=== PATIENT | female | born 1980 | race Caucasian/White ===

== ENCOUNTER 2021-10-10 12:27 | Inpatient (IN) | payer MEDICAID ==
[~2021-10-10] VITALS: Ht 165.1 cm; Wt 85.7 kg
[2021-10-10] MEDS ORDERED: ALBU6.7H9 IH (12:32)
[2021-10-10] MEDS ORDERED: METHYLPREDNISOLONE SOD SUCC 125 MG/2 ML VIAL IV STA (12:45)
[2021-10-10] MEDS ORDERED: IPRATROPIUM BROMIDE (0.02%) 0.5MG/2.5ML NEB HHN STA (12:45)
[2021-10-10] MEDS ORDERED: ALBUTEROL (0.083%) 2.5MG/3ML NEB HHN STA (12:45)
[2021-10-10] MEDS ORDERED: ASPIRIN 81MG TABLET PO ONE (12:45)
[2021-10-10] MEDS ORDERED: MAGNESIUM 2 G PREMIX 50 ML IV ONE (13:00)
[2021-10-10 13:11] LABS: BASOPHILS % 0.5 % (0.0-2.0); EOSINOPHILS % 7.7 % (0.0-5.0); HEMATOCRIT. 36.2 % (36.0-48.0); HEMOGLOBIN. 11.7 g/dL (12.0-16.0); LYMPHOCYTES % 18.5 % (20.0-50.0); MEAN CORPUSCULAR HEMOGLOBIN 24.7 pg (28.0-32.0); MEAN CORPUSCULAR VOLUME 76.7 fL (81.0-99.0); MEAN PLATELET VOLUME 8.7 fl (7.4-10.4); MONOCYTES % 4.9 % (2.0-8.0); NEUTROPHILS % 68.4 % (40.0-76.0); PLATELET 316 x1000/uL (130-400); RED BLOOD CELL COUNT 4.72 mill/uL (4.2-5.4); RED CELL DISTRIBUTION WIDTH 16.4 % (11.6-14.6)
[2021-10-10 13:29] LABS: CHLORIDE 106 mEq/L (98-107)
[2021-10-10 13:34] LABS: HCG SCREEN NEGATIVE
[2021-10-10] MEDS ORDERED: ACETAMINOPHEN 325MG TABLET PO PRN (19:30)
[2021-10-10] MEDS ORDERED: ONDANSETRON HCL 4MG/2ML INJ IV PRN (19:30)
[2021-10-10] MEDS ORDERED: CLONIDINE 0.1MG TABLET PO PRN (19:30)
[2021-10-10] MEDS ORDERED: DIPHENHYDRAMINE 50MG/ML VIAL IV PRN (19:30)
[2021-10-10] MEDS: ENOXAPARIN 40MG/0.4ML SYR SUBCUT SCH (21:00)
[2021-10-11] MEDS: IPRATROPIUM/ALBUTEROL 0.5-3(2.5)MG/3ML NEB HHN PRN ×2 (02:32→08:54)
[2021-10-11 04:05] LABS: BASOPHILS % 0.2 % (0.0-2.0); EOSINOPHILS % 0.1 % (0.0-5.0); HEMOGLOBIN. 11.6 g/dL (12.0-16.0); LYMPHOCYTES % 7.8 % (20.0-50.0); MEAN CORPUSCULAR HEMOGLOBIN 24.8 pg (28.0-32.0); MEAN CORPUSCULAR VOLUME 76.9 fL (81.0-99.0); MONOCYTES % 2.5 % (2.0-8.0); NEUTROPHILS % 89.4 % (40.0-76.0); PLATELET 327 x1000/uL (130-400); RED BLOOD CELL COUNT 4.68 mill/uL (4.2-5.4); RED CELL DISTRIBUTION WIDTH 16.5 % (11.6-14.6)
[2021-10-11 04:09] LABS: CHLORIDE 107 mEq/L (98-107)
[2021-10-11] MEDS ORDERED: IPRATROPIUM/ALBUTEROL 0.5-3(2.5)MG/3ML NEB HHN PRN (09:15)
[2021-10-11 09:30] VITALS: BP 124/51
[2021-10-11 09:49] VITALS: BP 124/51
[2021-10-11] MEDS ORDERED: CITA10SO PO (10:23)
[2021-10-11] MEDS: METHYLPREDNISOLONE SOD SUCC 40 MG/ML VIAL IV SCH ×3 (10:30→22:48)
[2021-10-11 12:00] VITALS: BP 129/56
[2021-10-11] MEDS: IPRATROPIUM/ALBUTEROL 0.5-3(2.5)MG/3ML NEB HHN SCH ×3 (12:56→21:11)
[2021-10-11 16:00] VITALS: BP 122/57
[2021-10-11] MEDS: MONTELUKAST SODIUM 10MG TABLET PO SCH (16:39)
[2021-10-11 20:00] VITALS: BP 120/69
[2021-10-11] MEDS: ENOXAPARIN 40MG/0.4ML SYR SUBCUT SCH (21:00)
[2021-10-12] VITALS (7 sets, daily range): BP systolic 104–134; BP diastolic 41–71
[2021-10-12] MEDS: METHYLPREDNISOLONE SOD SUCC 40 MG/ML VIAL IV SCH ×3 (07:11→21:29)
[2021-10-12] MEDS: IPRATROPIUM/ALBUTEROL 0.5-3(2.5)MG/3ML NEB HHN SCH ×4 (09:01→20:31)
[2021-10-12] MEDS ORDERED: FLUT1AER INH (11:18)
[2021-10-12] MEDS ORDERED: ALBU6.7H9 IH (11:18)
[2021-10-12] MEDS ORDERED: FAMO20TA8 MT (11:18)
[2021-10-12] MEDS ORDERED: MED4 MT (11:18)
[2021-10-12] MEDS: MONTELUKAST SODIUM 10MG TABLET PO SCH (18:04)
[2021-10-12] MEDS: ENOXAPARIN 40MG/0.4ML SYR SUBCUT SCH (21:30)
[2021-10-13] VITALS: BP 138/48
[2021-10-13] MEDS: IPRATROPIUM/ALBUTEROL 0.5-3(2.5)MG/3ML NEB HHN SCH ×3 (00:31→13:37)
[2021-10-13 04:00] VITALS: BP 122/50
[2021-10-13] MEDS: METHYLPREDNISOLONE SOD SUCC 40 MG/ML VIAL IV SCH ×2 (05:06→09:56)
[2021-10-13 08:00] VITALS: BP 119/62
[2021-10-13 12:00] VITALS: BP 119/66
[2021-10-13 16:00] VITALS: BP 118/57
[2021-10-13 16:14] LABS: BG BASE EXCESS 0.1 mmol/L (-2.0-2.0); BG CARBOXYHEMOGLOBIN 0.2 % (0.5-1.5); BG DEOXYHEMOGLOBIN 5.8 % (0.0-5.0); BG FRACTION INSPIRED OXYGEN 21; BG HCO3 ACT 23.5 mmol/L (22.0-26.0); BG METHEMOGLOBIN 0.3 % (0.0-1.5); BG OXYGEN SATURATION 94.2 % (92.0-98.5); BG OXYHEMOGLOBIN 93.7 % (94.0-97.0); BG PCO2 34.2 mmHg (35.0-45.0); BG PH 7.455 (7.350-7.450); BG PO2 65.9 mmHg (75.0-100.0); BG SAMPLE SITE RIGHT RADIAL; BG TOTAL HEMOGLOBIN 12.6 g/dL (12.0-18.0); BG VENT MODE ROOM AIR
[2021-10-13] MEDS: MONTELUKAST SODIUM 10MG TABLET PO SCH (17:19)
== END 2021-10-13 18:15 | disposition home or self-care (01) | DRG 133 ==
LOC: ER 12:27 → MICUSO 17:09 → 6WST 10-11 10:04
PROVIDERS: ADMIT Internal Medicine; ATTEND Internal Medicine
DX: J96.00 Acute respiratory failure, unspecified whether with hypoxia or hypercapnia (principal); J45.901 Unspecified asthma with (acute) exacerbation; F41.9 Anxiety disorder, unspecified; F32.A Depression, unspecified; Z79.51 Long term (current) use of inhaled steroids
CPT/HCPCS: 36415; 36600; 71045; 80053; 82375; 82805; 83880; 84484; 84703; 85025; 93005; 93970; 94640; 99285; J1650; J2920; J2930; J3475

== ENCOUNTER 2022-07-06 06:00 | Emergency (ER) | payer MEDICAID ==
[~2022-07-06] VITALS: Ht 160 cm; Wt 76.0 kg
[~2022-07-06 06:00] MED LIST: ALBU6.7H3 IH; CITA10SO PO; FAMO20TA8 MT; FLUT1AER INH; MED4 MT
[2022-07-06] MEDS ORDERED: IBUPROFEN 600MG TABLET PO STA (06:54)
[2022-07-06 07:24] LABS: BASOPHILS % 0.7 % (0.0-2.0); EOSINOPHILS % 3.2 % (0.0-5.0); HEMATOCRIT. 28.9 % (36.0-48.0); LYMPHOCYTES % 23.4 % (20.0-50.0); MEAN CORPUSCULAR HEMOGLOBIN 21.9 pg (28.0-32.0); MEAN CORPUSCULAR VOLUME 70.4 fL (81.0-99.0); MEAN PLATELET VOLUME 8.2 fl (7.4-10.4); MONOCYTES % 7.2 % (2.0-8.0); NEUTROPHILS % 65.5 % (40.0-76.0); PLATELET 411 x1000/uL (130-400); RED BLOOD CELL COUNT 4.11 mill/uL (4.2-5.4); RED CELL DISTRIBUTION WIDTH 19.7 % (11.6-14.6)
[2022-07-06 07:32] LABS: CHLORIDE 106 mEq/L (98-107)
[2022-07-06] MEDS ORDERED: IBUP-2029 MT (08:21)
[2022-07-06] MEDS ORDERED: METH-653 MT (08:25)
[2022-07-06] MEDS ORDERED: P50 MT (08:25)
[2022-07-06 08:49] VITALS: BP 129/57
== END 2022-07-06 08:53 | disposition home or self-care (01) ==
LOC: ER 06:00
DX: R07.9 Chest pain, unspecified (principal); M54.6 Pain in thoracic spine; J45.909 Unspecified asthma, uncomplicated
CPT/HCPCS: 36415; 71045; 80053; 84484; 85025; 93005; 99285

== ENCOUNTER 2022-10-06 23:26 | Emergency (ER) | payer MEDICAID ==
[~2022-10-06] VITALS: Ht 165.1 cm; Wt 86.0 kg
[~2022-10-06 23:26] MED LIST changes: +IBUP-2029 MT; +METH-653 MT; +P50 MT
[2022-10-06 23:36] VITALS: BP 139/64; PULSE 73; RESP 18; TEMP 98.8; O2SAT 96
[2022-10-07] MEDS ORDERED: HYDROCODONE/ACETAMINOPHEN 10/325MG TABLET PO ONE (00:30)
[2022-10-07] MEDS ORDERED: KETOROLAC 60MG/2ML VIAL IM ONE (00:30)
[2022-10-07] MEDS ORDERED: HYDROCODONE/ACETAMINOPHEN 10/325MG TABLET PO NR (02:15)
[2022-10-07] MEDS ORDERED: IBUP-2030 MT (02:33)
== END 2022-10-07 03:02 | disposition home or self-care (01) ==
LOC: ER 23:26
DX: M25.562 Pain in left knee (principal); J45.909 Unspecified asthma, uncomplicated; F41.9 Anxiety disorder, unspecified; Z79.899 Other long term (current) drug therapy
CPT/HCPCS: 99283; 73562; 96372; J1885; Z7610; L1830

== ENCOUNTER 2023-02-03 18:11 | Emergency (ER) | payer MEDICAID ==
[~2023-02-03] VITALS: Ht 165.1 cm; Wt 86.0 kg
[~2023-02-03 18:11] MED LIST changes: +IBUP-2030 MT
[2023-02-03 18:16] VITALS: BP 150/76
[2023-02-03] MEDS ORDERED: IPRATROPIUM BROMIDE (0.02%) 0.5MG/2.5ML NEB HHN STA (18:35)
[2023-02-03] MEDS ORDERED: PREDNISONE 20MG TABLET PO ONE (18:45)
[2023-02-03] MEDS ORDERED: P50 MT (18:47)
[2023-02-03 19:10] VITALS: PULSE 79; RESP 24
[2023-02-03 19:56] VITALS: PULSE 82; RESP 18; O2SAT 92
[2023-02-03] MEDS: ALBUTEROL (0.083%) 2.5MG/3ML NEB HHN SCH ×3 (19:56→20:16)
[2023-02-03 20:06] VITALS: PULSE 82; RESP 18; O2SAT 98
[2023-02-03 20:16] VITALS: PULSE 82; RESP 18; O2SAT 98
[2023-02-03 20:37] VITALS: PULSE 72; RESP 19; TEMP 98
== END 2023-02-03 20:38 | disposition home or self-care (01) ==
LOC: ER 18:14
DX: J45.901 Unspecified asthma with (acute) exacerbation (principal); F41.9 Anxiety disorder, unspecified
CPT/HCPCS: 94640; 99285; J7512; Z7610 ×3

== ENCOUNTER 2024-01-03 17:31 | Emergency (ER) | payer MEDICAID ==
[~2024-01-03] VITALS: Ht 162.6 cm; Wt 95.0 kg
[~2024-01-03 17:31] MED LIST changes: -MED4 MT; +METH4TAB95 MT
[2024-01-03 17:42] VITALS: O2SAT 98
[2024-01-03] MEDS: IBUPROFEN 600MG TABLET PO STA (19:29)
[2024-01-03] MEDS ORDERED: IBUP-2029 PO (19:50)
[2024-01-03] MEDS ORDERED: CIPR1DRO2 LEFT EAR (19:50)
[2024-01-03] MEDS ORDERED: CEPH500C2 MT (19:50)
[2024-01-03 20:20] VITALS: BP 127/65; PULSE 73; RESP 17; TEMP 36.78072; O2SAT 100
== END 2024-01-03 23:40 | disposition home or self-care (01) ==
LOC: ER 17:31
DX: H60.92 Unspecified otitis externa, left ear (principal)
CPT/HCPCS: 99283

== ENCOUNTER 2024-03-16 04:42 | Emergency (ER) | payer MEDICAID ==
[~2024-03-16] VITALS: Ht 165.1 cm; Wt 92.6 kg
[~2024-03-16 04:42] MED LIST changes: +CEPH500C2 MT; +CIPR1DRO2 LEFT EAR; +IBUP-2029 PO
[2024-03-16 04:47] VITALS: O2SAT 93
[2024-03-16 04:53] VITALS: BP 151/71; TEMP 98.1; O2SAT 92
[2024-03-16] MEDS: DEXAMETHASONE 10 MG/ML VIAL PO ONE (05:15)
[2024-03-16 05:50] VITALS: PULSE 78; RESP 18
[2024-03-16 05:55] LABS: HEMATOCRIT. 34.6 % (36.0-48.0); HEMOGLOBIN. 11.2 g/dL (12.0-16.0); MEAN CORPUSCULAR HEMOGLOBIN 24.7 pg (28.0-32.0); MEAN CORPUSCULAR HGB CONC 32.2 g/dL (31.0-37.0); MEAN CORPUSCULAR VOLUME 76.7 fL (81.0-99.0); MEAN PLATELET VOLUME 8.5 fl (7.4-10.4); PLATELET 266 x1000/uL (130-400); RED BLOOD CELL COUNT 4.51 mill/uL (4.2-5.4); WHITE BLOOD COUNT 8.4 x1000/uL (4.5-11.0)
[2024-03-16] MEDS: IPRATROPIUM/ALBUTEROL 0.5-3(2.5)MG/3ML NEB HHN ONE (05:59)
[2024-03-16 06:00] LABS: CHLORIDE 103 mEq/L (98-107); POTASSIUM 3.3 mEq/L (3.5-5.1); SODIUM 137 mEq/L (136-145)
[2024-03-16 06:01] LABS: CALCIUM 9.1 mg/dL (8.7-10.4); CARBON DIOXIDE 27 mEq/L (21-32)
[2024-03-16 06:06] LABS: CREATININE 0.6 mg/dL (0.6-1.0); GLUCOSE 121 mg/dL (70-105); UREA NITROGEN BLOOD 8 mg/dL (9-23)
[2024-03-16 06:09] LABS: TROPONIN I HIGH SENSITIVITY < 4 ng/L (3.0-34)
[2024-03-16 06:13] LABS: PROTHROMBIN TIME 11.1 sec (9.6-11.0)
[2024-03-16 06:56] LABS: DIFFERENTIAL COMMENT 1
[2024-03-16 08:14] LABS: PLATELET ESTIMATE NORMAL
[2024-03-16 08:15] LABS: ANISOCYTOSIS 1+; MICROCYTOSIS 1+
[2024-03-16] MEDS ORDERED: ALBU18HF2 IH (08:44)
[2024-03-16] MEDS ORDERED: P50 PO (08:44)
== END 2024-03-16 10:07 | disposition home or self-care (01) ==
LOC: ER 04:52
DX: J45.901 Unspecified asthma with (acute) exacerbation (principal); F41.9 Anxiety disorder, unspecified; Z79.899 Other long term (current) drug therapy
CPT/HCPCS: 80048; 85025; 85610; 84484; 36415; 71045; 94640; 93005; 99285; J1100; Z7610 ×3